=== PATIENT | female | born 1965 | race Caucasian/White ===

== ENCOUNTER → 2016-11-03 | Outpatient (CLI) | payer BC ==
[2016-11-03 10:13] LABS: ALBUMIN 3.5 GM/DL (3.2-5.2); ALBUMIN/GLOBULIN RATIO 0.85 (1.00-1.93); ALKALINE PHOSPHATASE 78 U/L (45-117); ALT/SGPT 25 U/L (12-78); ANION GAP 7 MEQ/L (8-16); AST/SGOT 31 U/L (15-37); BILIRUBIN,TOTAL 0.5 MG/DL (0.2-1.0); BLOOD UREA NITROGEN 12 MG/DL (7-18); CALCIUM LEVEL 8.7 MG/DL (8.5-10.1); CARBON DIOXIDE LEVEL 26 MEQ/L (21-32); CHLORIDE LEVEL 107 MEQ/L (98-107); CHOLESTEROL LEVEL 175 MG/DL (<200); CREATININE FOR GFR 0.62 MG/DL (0.55-1.02); GLOMERULAR FILTRATION RATE > 60.0 (>58); GLUCOSE, FASTING 91 MG/DL (70-105); SODIUM LEVEL 140 MEQ/L (136-145); TOTAL PROTEIN 7.6 GM/DL (6.4-8.2); TRIGLYCERIDES LEVEL 115 MG/DL (<150)
[2016-11-03 10:15] LABS: POTASSIUM SERUM 5.2 MEQ/L (3.5-5.1)
== END ==
LOC: M LAB 08:57
PROVIDERS: ATTEND Family Medicine
DX: R73.03 Prediabetes (principal)

== ENCOUNTER → 2016-11-05 | Outpatient (CLI) | payer BC ==
--- NOTE | 2016-11-05 13:43 | REPMRS ---
Patient History The patient states she has not had a clinical breast exam in over a year. No known family history of cancer. Digital Mammo Screening Bilat: November 05, 2016 - Exam #: [id number] Bilateral CC and MLO view(s) were taken. Technologist: Sheyla Awad Technologist Prior study comparison: August 13, 2014, bilateral digital mammo screening bilat performed at [facility]. July 03, 2008, digital bilateral screening mammo performed at [facility]. FINDINGS: There are scattered fibroglandular densities. There has been no change in the appearance of the mammogram from the prior studies. There is a mild amount of scattered fibroglandular density which is fairly symmetric. There is no interval development of dominant mass, architectural distortion, or clustered microcalcification suggestive of malignancy. ASSESSMENT: BI-RADS/ACR category 1 mammogram. Negative. Recommendation Routine screening mammogram in 1 year (for women over age 40). This mammogram was interpreted with the aid of an FDA-approved computer-aided dectection system. Electronically Signed By: Wally Quinn MD 11/05/16 [id number]
== END ==
LOC: M RAD 12:52
PROVIDERS: ATTEND Family Medicine
DX: Z12.31 Encounter for screening mammogram for malignant neoplasm of breast (principal)

== ENCOUNTER → 2017-06-24 | Outpatient (CLI) | payer BC ==
[2017-06-24 13:13] LABS: ESTIMATED AVERAGE GLUCOSE 105 MG/DL (60-110); HEMOGLOBIN A1c 5.3 %
== END ==
LOC: M WUC 09:50
DX: R73.03 Prediabetes (principal)
CPT/HCPCS: 83036

== ENCOUNTER → 2018-04-22 | Outpatient (CLI) | payer BC ==
[2018-04-22 17:04] LABS: ALBUMIN 3.9 GM/DL (3.2-5.2); ALT/SGPT 20 U/L (12-78); BILIRUBIN,TOTAL 0.3 MG/DL (0.2-1.0); BLOOD UREA NITROGEN 13 MG/DL (7-18); CALCIUM LEVEL 8.9 MG/DL (8.5-10.1); CARBON DIOXIDE LEVEL 30 MEQ/L (21-32); CHLORIDE LEVEL 103 MEQ/L (98-107); CHOLESTEROL LEVEL 149 MG/DL (<200); CHOLESTEROL RISK RATIO 3.386 (<5); CREATININE FOR GFR 0.72 MG/DL (0.55-1.30); FREE T4 1.21 NG/DL (0.76-1.46); GLOMERULAR FILTRATION RATE > 60.0 (>51); GLUCOSE, FASTING 97 MG/DL (70-100); HDL CHOLESTEROL 44 MG/DL (>40); LDL CHOLESTEROL 86 MG/DL (<100); NON-HDL-C 105 MG/DL; POTASSIUM SERUM 4.8 MEQ/L (3.5-5.1); SODIUM LEVEL 140 MEQ/L (136-145); TOTAL PROTEIN 7.5 GM/DL (6.4-8.2); TRIGLYCERIDES LEVEL 94 MG/DL (<150)
[2018-04-22 17:10] LABS: HEMOGLOBIN A1c 5.9 %
== END ==
LOC: M WUC 12:03
PROVIDERS: ATTEND Family Medicine
DX: R73.03 Prediabetes (principal); E66.09 Other obesity due to excess calories

== ENCOUNTER → 2018-10-17 | Outpatient (CLI) | payer BC ==
[2018-10-17 12:51] LABS: BASO % 0.3 % (0.0-1.0); EOS # 0.1 10^3/uL (0.0-0.50); EOS % 1.5 % (0.0-3.0); HEMOGLOBIN 15.9 g/dl (12.0-15.5); LYMPH # 2.8 10^3/uL (1.5-4.5); LYMPH % 30.1 % (24.0-44.0); MEAN CORPUSCULAR HEMOGLOBIN 30.9 pg (27.0-33.0); MEAN CORPUSCULAR HGB CONC 33.1 g/dl (32.0-36.5); MEAN CORPUSCULAR VOLUME 93.2 fl (80.0-96.0); MONO # 0.6 10^3/uL (0.0-0.8); MONO % 6.6 % (0.0-5.0); NEUTROPHILS # 5.6 10^3/uL (1.8-7.7); NEUTROPHILS % 61.2 % (36.0-66.0); PLATELET COUNT, AUTOMATED 207 10^3/uL (150-450); RED BLOOD COUNT 5.15 10^6/uL (4.00-5.40); WHITE BLOOD COUNT 9.2 10^3/uL (4.0-10.0)
[2018-10-17 13:10] LABS: ERYTHROCYTE SEDIMENTATION RATE 6 mm/hr (0-30)
[2018-10-19 14:07] LABS: ANTINUCLEAR ANTIBODIES DIRECT Negative (Negative)
== END ==
LOC: M WUC 08:52
PROVIDERS: ATTEND Otolaryngology
DX: R22.1 Localized swelling, mass and lump, neck (principal)

== ENCOUNTER → 2018-10-17 | Outpatient (CLI) | payer BC ==
[2018-10-17 12:49] LABS: BASO % 0.4 % (0.0-1.0); EOS # 0.1 10^3/uL (0.0-0.50); EOS % 1.4 % (0.0-3.0); HEMATOCRIT 48.4 % (36.0-47.0); LYMPH # 2.7 10^3/uL (1.5-4.5); LYMPH % 29.5 % (24.0-44.0); MEAN CORPUSCULAR HEMOGLOBIN 30.9 pg (27.0-33.0); MEAN CORPUSCULAR HGB CONC 33.1 g/dl (32.0-36.5); MEAN CORPUSCULAR VOLUME 93.6 fl (80.0-96.0); MONO # 0.5 10^3/uL (0.0-0.8); NEUTROPHILS # 5.6 10^3/uL (1.8-7.7); NEUTROPHILS % 62.4 % (36.0-66.0); PLATELET COUNT, AUTOMATED 180 10^3/uL (150-450); RED BLOOD COUNT 5.17 10^6/uL (4.00-5.40)
[2018-10-17 13:06] LABS: ALBUMIN 3.7 GM/DL (3.2-5.2); ALT/SGPT 20 U/L (12-78); BILIRUBIN,TOTAL 0.3 MG/DL (0.2-1.0); BLOOD UREA NITROGEN 12 MG/DL (7-18); CALCIUM LEVEL 9.4 MG/DL (8.5-10.1); CARBON DIOXIDE LEVEL 33 MEQ/L (21-32); CHLORIDE LEVEL 106 MEQ/L (98-107); CHOLESTEROL LEVEL 155 MG/DL (<200); CHOLESTEROL RISK RATIO 3.444 (<5); CREATININE FOR GFR 0.67 MG/DL (0.55-1.30); GLOMERULAR FILTRATION RATE > 60.0 (>51); GLUCOSE, FASTING 111 MG/DL (70-100); HDL CHOLESTEROL 45 MG/DL (>40); LDL CHOLESTEROL 90 MG/DL (<100); NON-HDL-C 110 MG/DL; POTASSIUM SERUM 4.2 MEQ/L (3.5-5.1); SODIUM LEVEL 142 MEQ/L (136-145); TOTAL 25(OH) VITAMIN D 18.8 NG/ML (30.0-100.0); TOTAL PROTEIN 7.3 GM/DL (6.4-8.2); TRIGLYCERIDES LEVEL 99 MG/DL (<150)
[2018-10-19 00:06] LABS: Lyme Disease IgG/IgM Antibodie <0.91 ISR (0.00-0.90); Lyme Disease IgM Ab Quantitati <0.80 index (0.00-0.79)
== END ==
LOC: M WUC 08:48
PROVIDERS: ATTEND Family Medicine
DX: R73.03 Prediabetes (principal); J45.20 Mild intermittent asthma, uncomplicated; R53.83 Other fatigue; Z13.220 Encounter for screening for lipoid disorders

== ENCOUNTER → 2019-05-09 | Outpatient (CLI) | payer BC ==
--- NOTE | 2019-05-09 09:07 | REP ---
PA and lateral chest: Comparison is 03/30/2013. Lung zarate are clear. Cardiac size is normal. The central uri are prominent, unchanged. This may represent pulmonary hypertension. The mediastinum and skeletal structures are unremarkable. Impression: There are no new or acute cardiopulmonary findings. There is mild prominence of the central uri bilaterally, unchanged, possibly representing pulmonary hypertension. Electronically Signed by Rick Sloan MD 05/09/2019 08:58 A
[2019-05-09 09:53] LABS: ALBUMIN 3.9 GM/DL (3.2-5.2); ALT/SGPT 24 U/L (12-78); BILIRUBIN,TOTAL 0.4 MG/DL (0.2-1.0); BLOOD UREA NITROGEN 14 MG/DL (7-18); CALCIUM LEVEL 9.2 MG/DL (8.5-10.1); CARBON DIOXIDE LEVEL 31 MEQ/L (21-32); CHLORIDE LEVEL 106 MEQ/L (98-107); CREATININE FOR GFR 0.72 MG/DL (0.55-1.30); GLOMERULAR FILTRATION RATE > 60.0 (>51); GLUCOSE, FASTING 125 MG/DL (70-100); POTASSIUM SERUM 4.6 MEQ/L (3.5-5.1); SODIUM LEVEL 140 MEQ/L (136-145); TOTAL PROTEIN 7.5 GM/DL (6.4-8.2)
[2019-05-09 17:39] LABS: HEMOGLOBIN A1c 5.7 %
== END ==
LOC: M WUC 08:07
PROVIDERS: ATTEND Physician Assistant
DX: J45.30 Mild persistent asthma, uncomplicated (principal); R73.03 Prediabetes; E55.9 Vitamin D deficiency, unspecified

== ENCOUNTER → 2020-06-18 | Outpatient (CLI) | payer BC ==
[~2020-06-18] MED LIST: GASTROGRAFIN SOLUTION 30ML (Q9963) As Ordered ONE; ISOVUE-370 76% 100ML VIAL As Ordered ONE
--- NOTE | 2020-06-18 14:20 | REP ---
INDICATION: RIGHT LOWER QUAD PAIN. COMPARISON: 07/15/2009 TECHNIQUE: Axial contrast-enhanced images from the lung bases to the pubic symphysis using oral and 100 cc Isovue 370 intravenous contrast material. Coronal and sagittal reformations obtained. This CT examination was performed using the following dose reduction techniques: Automated exposure control, adjustment of mA and/or kv according to the patient's size, and the use of iterative reconstruction technique. FINDINGS: Liver demonstrates fatty infiltration without focal hepatic lesion. Spleen, pancreas, gallbladder, bilateral adrenal glands are normal. 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 Nephrolithiasis suggested. The enteric system including stomach, small, and large bowel appears normal. No evidence for obstruction or acute inflammatory process. Normal terminal ileum and appendix are identified in the right lower quadrant. Few scattered sigmoid diverticula noted without acute diverticulitis. Pelvis demonstrates normal bladder and evidence for prior hysterectomy.. No ascites. No free air. No intraperitoneal or retroperitoneal adenopathy. Abdominal aorta and vasculature appear normal. Musculoskeletal structures are intact and without acute osseous abnormality. IMPRESSION: No acute abdominopelvic pathology appreciated. Horseshoe kidney and possible nephrolithiasis. No hydronephrosis. <Electronically signed by Yoel Koch > 06/18/20 [id number]
== END ==
LOC: M RAD 12:22
PROVIDERS: ATTEND Physician Assistant
DX: R10.31 Right lower quadrant pain (principal)
CPT/HCPCS: 74177; Q9963; Q9967

== ENCOUNTER → 2020-09-13 | Outpatient (CLI) | payer BC ==
--- NOTE | 2020-09-13 13:48 | REPMRS ---
Patient History The patient states she has not had a clinical breast exam in over a year. No known family history of cancer. No Hormone Replacement Therapy Patient states no breast complaints today. Patient has signed MRS History Sheet. Digital Woman Screen Mammo: September 13, 2020 - Exam #: [id number] Bilateral CC and MLO view(s) were taken. Technologist: Ruby Ho, Technologist Prior study comparison: November 05, 2016, bilateral digital mammo screening bilat, performed at [facility]. August 13, 2014, bilateral digital mammo screening bilat, performed at [facility]. FINDINGS: There are scattered fibroglandular densities. Screening. Digital screening (2D) mammography was performed bilaterally in the CC and MLO projections. Additionally, breast tomosynthesis (3D mammography) was performed bilaterally in the CC and MLO projections. Todays exam was compared to the prior exam/exams. By history, the patient has no complaints of a palpable breast abnormality or other significant breast complaints. The breasts are unchanged in size and shape. There are no ying-soft tissue densities or spiculated masses. There is no internal architectural distortion. There are no suspicious ying-calcific clusters. Skin thickening or nipple retraction is not present. IMPRESSION: BI-RADS Category 2- Benign Findings. There is no evidence of malignant alteration of the breasts. Followup examination recommended in one year. The Volpara volumetric breast density category is B, there are scattered areas of fibroglandular densities. This mammogram was read with the assistance of [employer],an FDA approved computer aided detection system for mammography. The lifetime Tyrer-Cuzick score is 10.3 % Negative x-ray reports should not delay surgical consultation if a dominant or clinically suspicious mass is present. Not all breast cancers can be identified by mammography. Therefore, we recommend that you continue to perform regular breast self-examination and physical examination and then promptly contact your physician of any concerns or changes. Adenosis and dense breasts may obscure an underlying neoplasm. Assessment: BI-RADS/ACR category 2 mammogram. Benign Findings. Recommendation Routine screening mammogram of both breasts in 1 year. Electronically Signed By: Jignesh Oviedo DO 09/13/20 1703
== END ==
LOC: M WHC 11:28
PROVIDERS: ATTEND Physician Assistant
DX: Z12.31 Encounter for screening mammogram for malignant neoplasm of breast (principal)

== ENCOUNTER → 2021-03-31 | Outpatient (CLI) | payer BC, MEDICARE, OTHER | LOC: M RAD 13:54 | PROVIDERS: ATTEND Family Medicine | DX: K57.30 Diverticulosis of large intestine without perforation or abscess without bleeding (principal); R10.30 Lower abdominal pain, unspecified; Q63.1 Lobulated, fused and horseshoe kidney | CPT/HCPCS: 74177; Q9963; Q9967 ==

== ENCOUNTER → 2021-05-20 | Outpatient (CLI) | payer MEDICARE ==
[2021-05-20 10:03] LABS: BASO # 0.1 10^3/uL (0.0-0.2); BASO % 0.8 % (0.0-1.0); EOS # 0.1 10^3/uL (0.0-0.5); EOS % 1.7 % (0.0-3.0); HEMATOCRIT 48.3 % (36.0-47.0); HEMOGLOBIN 16.1 g/dl (12.0-15.5); LYMPH # 2.4 10^3/uL (1.5-5.0); MEAN CORPUSCULAR HEMOGLOBIN 30.4 pg (27.0-33.0); MEAN CORPUSCULAR HGB CONC 33.3 g/dl (32.0-36.5); MEAN CORPUSCULAR VOLUME 91.1 fl (80.0-96.0); MONO # 0.6 10^3/uL (0.0-0.8); MONO % 7.6 % (2.0-8.0); NEUTROPHILS # 4.3 10^3/uL (1.5-8.5); NEUTROPHILS % 57.6 % (36.0-66.0); PLATELET COUNT, AUTOMATED 200 10^3/uL (150-450); WHITE BLOOD COUNT 7.5 10^3/uL (4.0-10.0)
[2021-05-20 10:35] LABS: LIPASE 96 U/L (73-393)
[2021-05-20 10:38] LABS: BLOOD UREA NITROGEN 13 MG/DL (7-18); CALCIUM LEVEL 9.6 MG/DL (8.5-10.1); CARBON DIOXIDE LEVEL 33 MEQ/L (21-32); CHLORIDE LEVEL 106 MEQ/L (98-107); CREATININE FOR GFR 0.66 MG/DL (0.55-1.30); GLOMERULAR FILTRATION RATE > 60.0 (>51); GLUCOSE, FASTING 114 MG/DL (70-100); POTASSIUM SERUM 4.2 MEQ/L (3.5-5.1); SODIUM LEVEL 141 MEQ/L (136-145)
[2021-05-20 10:39] LABS: ALBUMIN 3.7 GM/DL (3.2-5.2); ALT/SGPT 28 U/L (12-78); AMYLASE 40 U/L (25-115); BILIRUBIN,TOTAL 0.3 MG/DL (0.2-1.0); CHOLESTEROL LEVEL 157 MG/DL (<200); CHOLESTEROL RISK RATIO 3.738 (<5); HDL CHOLESTEROL 42 MG/DL (>40); LDL CHOLESTEROL 100 MG/DL (<100); NON-HDL-C 115 MG/DL; TOTAL PROTEIN 7.2 GM/DL (6.4-8.2); TRIGLYCERIDES LEVEL 76 MG/DL (<150)
[2021-05-20 10:49] LABS: HEMOGLOBIN A1c 5.8 %
== END ==
LOC: M WUC 08:30
PROVIDERS: ATTEND Family Medicine
DX: Z00.00 Encounter for general adult medical examination without abnormal findings (principal); R73.03 Prediabetes; Z13.29 Encounter for screening for other suspected endocrine disorder; Z13.220 Encounter for screening for lipoid disorders; Z13.0 Encounter for screening for diseases of the blood and blood-forming organs and certain disorders involving the immune mechanism; K57.30 Diverticulosis of large intestine without perforation or abscess without bleeding

== ENCOUNTER → 2021-09-25 | Outpatient (CLI) | payer MEDICARE | LOC: M WUC 10:25 | PROVIDERS: ATTEND Nurse Practitioner Adult Health | DX: M54.2 Cervicalgia (principal); M25.511 Pain in right shoulder ==

== ENCOUNTER → 2021-09-29 | Outpatient (CLI) | payer OTHER | LOC: M RAD 07:27 | PROVIDERS: ATTEND Nurse Practitioner Adult Health | DX: R09.89 Other specified symptoms and signs involving the circulatory and respiratory systems (principal) ==

== ENCOUNTER → 2022-01-05 | Outpatient (CLI) | payer OTHER ==
[2022-01-05 12:49] LABS: BASO % 0.2 % (0.0-1.0); EOS % 0.1 % (0.0-3.0); HEMATOCRIT 43.5 % (36.0-47.0); HEMOGLOBIN 14.7 g/dl (12.0-15.5); LYMPH # 1.2 10^3/uL (1.5-5.0); MEAN CORPUSCULAR HEMOGLOBIN 30.4 pg (27.0-33.0); MEAN CORPUSCULAR HGB CONC 33.8 g/dl (32.0-36.5); MEAN CORPUSCULAR VOLUME 90.1 fl (80.0-96.0); MONO # 0.4 10^3/uL (0.0-0.8); MONO % 2.9 % (2.0-8.0); NEUTROPHILS # 12.1 10^3/uL (1.5-8.5); NEUTROPHILS % 87.3 % (36.0-66.0); PLATELET COUNT, AUTOMATED 286 10^3/uL (150-450); RED BLOOD COUNT 4.83 10^6/uL (4.00-5.40); WHITE BLOOD COUNT 13.8 10^3/uL (4.0-10.0)
[2022-01-05 14:04] LABS: ALBUMIN 3.2 GM/DL (3.2-5.2); ALT/SGPT 39 U/L (12-78); BILIRUBIN,TOTAL 0.7 MG/DL (0.2-1.0); BLOOD UREA NITROGEN 16 MG/DL (7-18); CALCIUM LEVEL 9.4 MG/DL (8.5-10.1); CARBON DIOXIDE LEVEL 31 MEQ/L (21-32); CHLORIDE LEVEL 100 MEQ/L (98-107); GLOMERULAR FILTRATION RATE > 60.0 (>51); GLUCOSE, FASTING 172 MG/DL (70-100); POTASSIUM SERUM 3.3 MEQ/L (3.5-5.1); SODIUM LEVEL 139 MEQ/L (136-145); TOTAL PROTEIN 6.9 GM/DL (6.4-8.2)
== END ==
LOC: M WUC 10:09
PROVIDERS: ATTEND Nurse Practitioner Adult Health
DX: J44.1 Chronic obstructive pulmonary disease with (acute) exacerbation (principal); R91.8 Other nonspecific abnormal finding of lung field

== ENCOUNTER → 2022-01-12 | Outpatient (CLI) | payer OTHER ==
[2022-01-12 17:56] LABS: BASO # 0.1 10^3/uL (0.0-0.2); BASO % 0.3 % (0.0-1.0); EOS % 0.1 % (0.0-3.0); HEMATOCRIT 46.2 % (36.0-47.0); HEMOGLOBIN 14.7 g/dl (12.0-15.5); LYMPH # 1.5 10^3/uL (1.5-5.0); MEAN CORPUSCULAR HEMOGLOBIN 30.3 pg (27.0-33.0); MEAN CORPUSCULAR HGB CONC 31.8 g/dl (32.0-36.5); MEAN CORPUSCULAR VOLUME 95.3 fl (80.0-96.0); MONO # 0.4 10^3/uL (0.0-0.8); MONO % 2.7 % (2.0-8.0); NEUTROPHILS # 13.3 10^3/uL (1.5-8.5); NEUTROPHILS % 86.4 % (36.0-66.0); PLATELET COUNT, AUTOMATED 273 10^3/uL (150-450); RED BLOOD COUNT 4.85 10^6/uL (4.00-5.40); WHITE BLOOD COUNT 15.4 10^3/uL (4.0-10.0)
[2022-01-12 18:54] LABS: ALBUMIN 3.3 GM/DL (3.2-5.2); ALT/SGPT 24 U/L (12-78); BILIRUBIN,TOTAL 0.3 MG/DL (0.2-1.0); BLOOD UREA NITROGEN 13 MG/DL (7-18); C REACTIVE PROTEIN QUANTITATIV 1.49 MG/DL (0.00-0.30); CALCIUM LEVEL 9.5 MG/DL (8.5-10.1); CARBON DIOXIDE LEVEL 28 MEQ/L (21-32); CHLORIDE LEVEL 102 MEQ/L (98-107); CREATININE FOR GFR 0.87 MG/DL (0.55-1.30); FREE T4 1.21 NG/DL (0.76-1.46); GLOMERULAR FILTRATION RATE > 60.0 (>51); GLUCOSE, FASTING 198 MG/DL (70-100); POTASSIUM SERUM 3.8 MEQ/L (3.5-5.1); SODIUM LEVEL 136 MEQ/L (136-145); THYROID STIMULATING HORMONE 0.631 uIU/ML (0.358-3.740)
[2022-01-12 19:31] LABS: ERYTHROCYTE SEDIMENTATION RATE 12 mm/hr (0-30)
== END ==
LOC: M WUC 11:19
PROVIDERS: ATTEND Nurse Practitioner Adult Health
DX: J44.1 Chronic obstructive pulmonary disease with (acute) exacerbation (principal)

== ENCOUNTER → 2022-02-02 | Outpatient (CLI) | payer MEDICARE, OTHER ==
[~2022-02-02] MED LIST changes: -GASTROGRAFIN SOLUTION 30ML (Q9963) As Ordered ONE
== END ==
LOC: M RAD 08:32
PROVIDERS: ATTEND Nurse Practitioner Adult Health
DX: R59.0 Localized enlarged lymph nodes (principal); M50.322 Other cervical disc degeneration at C5-C6 level; M50.323 Other cervical disc degeneration at C6-C7 level

== ENCOUNTER 2022-02-23 08:46 | Emergency (ER) | payer MEDICARE, OTHER ==
[~2022-02-23] VITALS: Ht 152.4 cm; Wt 79.5 kg
[2022-02-23] MEDS ORDERED: OMEP40CA4 PO (09:01)
[2022-02-23] MEDS ORDERED: SING10TA32 PO (09:01)
[2022-02-23] MEDS ORDERED: TIZA4CAP PO (09:01)
[2022-02-23] MEDS ORDERED: ONDANSETRON 4MG 2ML VIAL IV ONE (09:15)
[2022-02-23] MEDS ORDERED: CYCLOBENZAPRINE 10MG TABLET PO ONE (09:15)
[2022-02-23] MEDS ORDERED: IPRATROPIUM 0.5MG/ALBUTEROL 2.5MG INH SOL UD 3ML (DUONEB) NEB ONE (09:15)
[2022-02-23] MEDS: MORPHINE 4 MG/ML 1ML VIAL IV PRN ×2 (09:32→12:23)
[2022-02-23] MEDS ORDERED: EXCEDRIN MIGRAINE TABLET PO ONE (11:55)
[2022-02-23 12:21] VITALS: BP 133/95
[2022-02-23] MEDS ORDERED: PERC5TAB12 PO (12:58)
== END 2022-02-23 13:26 | disposition home or self-care (01) ==
LOC: M ED 08:46 → EDBD 08:46 → M ED 13:26
DX: M54.6 Pain in thoracic spine (principal); M54.50 Low back pain, unspecified; W00.1XXA Fall from stairs and steps due to ice and snow, initial encounter; Y92.099 Unspecified place in other non-institutional residence as the place of occurrence of the external cause; R73.03 Prediabetes; J44.9 Chronic obstructive pulmonary disease, unspecified; J45.909 Unspecified asthma, uncomplicated; K21.9 Gastro-esophageal reflux disease without esophagitis; F17.200 Nicotine dependence, unspecified, uncomplicated; F12.10 Cannabis abuse, uncomplicated; Z88.6 Allergy status to analgesic agent; Z88.5 Allergy status to narcotic agent
CPT/HCPCS: 71101; 94640; 96374; 96375; 96376; 99284; J2270; J2405

== ENCOUNTER → 2022-03-09 | Outpatient (CLI) | payer MEDICARE, OTHER ==
[~2022-03-09] MED LIST changes: +E-Z-GAS II EFFERVESCENT PACKET (SODIUM BICARB./CITRIC ACID/SIMETHICONE) As Ordered ONE; +E-Z-HD 98% w/w 340GM SUSP BTL As Ordered ONE; +E-Z-PAQUE 96% w/w SUSP 176GM BTL As Ordered ONE; -ISOVUE-370 76% 100ML VIAL As Ordered ONE; +OMEP40CA4 PO; +PERC5TAB12 PO; +SING10TA32 PO; +TIZA4CAP PO
== END ==
LOC: M RAD 08:52
PROVIDERS: ATTEND Surgery
DX: R13.10 Dysphagia, unspecified (principal)

== ENCOUNTER → 2022-04-12 | Outpatient (CLI) | payer OTHER ==
[~2022-04-12] MED LIST changes: +BUDE10.2; -E-Z-GAS II EFFERVESCENT PACKET (SODIUM BICARB./CITRIC ACID/SIMETHICONE) As Ordered ONE; -E-Z-HD 98% w/w 340GM SUSP BTL As Ordered ONE; -E-Z-PAQUE 96% w/w SUSP 176GM BTL As Ordered ONE; +FLUT11IN; +VITA100093 PO
== END ==
LOC: M LABSMTC 11:18
PROVIDERS: ATTEND Anesthesiology
DX: Z01.812 Encounter for preprocedural laboratory examination (principal); Z11.52 Encounter for screening for COVID-19

== ENCOUNTER 2022-04-16 09:40 | Day surgery (SDC) | payer OTHER ==
[~2022-04-16] VITALS: Ht 152.4 cm; Wt 78.7 kg
[~2022-04-16 09:40] MED LIST changes: +NS 1,000 ML IV ONE
[2022-04-16] MEDS ORDERED: SUCR1TA PO (10:00)
[2022-04-16] MEDS ORDERED: ONDANSETRON 4MG 2ML VIAL As Ordered ONE (10:56)
[2022-04-16] MEDS ORDERED: propofoL 200 MG/20 ML VIAL As Ordered ONE ×2 (10:56→11:06)
[2022-04-16] MEDS ORDERED: LIDOCAINE 2% 100MG/5ML SDV (FOR ANES.) As Ordered ONE (10:56)
[2022-04-16 11:32] VITALS: BP 150/64
== END 2022-04-16 11:33 | disposition home or self-care (01) ==
LOC: M OPP 09:40
PROVIDERS: ATTEND Surgery
DX: K52.9 Noninfective gastroenteritis and colitis, unspecified (principal); Q43.8 Other specified congenital malformations of intestine; K31.89 Other diseases of stomach and duodenum; J45.909 Unspecified asthma, uncomplicated; Z79.51 Long term (current) use of inhaled steroids; Z79.899 Other long term (current) drug therapy; Z88.5 Allergy status to narcotic agent; Z88.8 Allergy status to other drugs, medicaments and biological substances
CPT/HCPCS: 43239; 45378; 88305; J2405

== ENCOUNTER → 2022-05-29 | Outpatient (CLI) | payer OTHER ==
[~2022-05-29] MED LIST changes: +LIQUID POLIBAR PLUS 105% w/v 750ML BTL As Ordered ONE; +MONT-5 PO; -NS 1,000 ML IV ONE; -SING10TA32 PO; +SUCR1TA PO
== END ==
LOC: M RAD 09:42
PROVIDERS: ATTEND Physician Assistant
DX: R19.7 Diarrhea, unspecified (principal); R10.84 Generalized abdominal pain

== ENCOUNTER → 2022-07-16 | Outpatient (CLI) | payer OTHER ==
[~2022-07-16] MED LIST changes: -LIQUID POLIBAR PLUS 105% w/v 750ML BTL As Ordered ONE
[2022-07-16 13:09] LABS: BASO % 0.3 % (0.0-1.0); EOS # 0.1 10^3/uL (0.0-0.5); EOS % 1.1 % (0.0-3.0); HEMATOCRIT 47.3 % (36.0-47.0); HEMOGLOBIN 16.1 g/dl (12.0-15.5); LYMPH # 2.5 10^3/uL (1.5-5.0); LYMPH % 26.2 % (24.0-44.0); MEAN CORPUSCULAR HEMOGLOBIN 31.4 pg (27.0-33.0); MEAN CORPUSCULAR VOLUME 92.4 fl (80.0-96.0); MONO # 0.6 10^3/uL (0.0-0.8); MONO % 6.6 % (2.0-8.0); NEUTROPHILS # 6.3 10^3/uL (1.5-8.5); NEUTROPHILS % 65.5 % (36.0-66.0); PLATELET COUNT, AUTOMATED 222 10^3/uL (150-450); RED BLOOD COUNT 5.12 10^6/uL (4.00-5.40); WHITE BLOOD COUNT 9.6 10^3/uL (4.0-10.0)
[2022-07-16 13:29] LABS: HEMOGLOBIN A1c 5.4 % (4.0-6.0)
[2022-07-16 13:42] LABS: ALBUMIN 3.8 G/DL (3.2-5.2); ALKALINE PHOSPHATASE 90 U/L (46-116); ALT/SGPT 16 U/L (7.0-40); AST/SGOT 19 U/L (<34); BILIRUBIN,TOTAL 0.5 MG/DL (0.3-1.2); BLOOD UREA NITROGEN 14 MG/DL (9-23); CALCIUM LEVEL 9.9 MG/DL (8.5-10.1); CARBON DIOXIDE LEVEL 31 MMOL/L (20-31); CHLORIDE LEVEL 105 MMOL/L (98-107); CHOLESTEROL LEVEL 161 MG/DL (<200); CHOLESTEROL RISK RATIO 3.83 (<5); CREATININE FOR GFR 0.65 MG/DL (0.55-1.30); FREE T4 1.68 NG/DL (0.89-1.76); GLOMERULAR FILTRATION RATE > 60.0 (>51); GLUCOSE, FASTING 104 MG/DL (60-100); LDL CHOLESTEROL 100.4 MG/DL (<100); POTASSIUM SERUM 4.2 MMOL/L (3.5-5.1); SODIUM LEVEL 140 MMOL/L (136-145); THYROID STIMULATING HORMONE 1.384 uIU/ML (0.55-4.78); TOTAL PROTEIN 7.3 G/DL (5.7-8.2); TRIGLYCERIDES LEVEL 93 MG/DL (<150)
[2022-07-16 13:43] LABS: TOTAL 25(OH) VITAMIN D 96.6 NG/ML (20.0-100.0)
== END ==
LOC: M WUC 09:25
PROVIDERS: ATTEND Nurse Practitioner Adult Health
DX: R73.03 Prediabetes (principal); E55.9 Vitamin D deficiency, unspecified

== ENCOUNTER 2022-08-17 18:07 | Emergency (ER) | payer OTHER ==
[~2022-08-17] VITALS: Ht 154.9 cm; Wt 78.6 kg
[~2022-08-17 18:07] MED LIST changes: -FLUT11IN; +FLUT12AE6
[2022-08-17 18:08] VITALS: BP 151/64; TEMP 97.9; O2SAT 99
[2022-08-17 19:25] LABS: BASO % 0.3 % (0.0-1.0); EOS % 0.3 % (0.0-3.0); HEMATOCRIT 45.7 % (36.0-47.0); HEMOGLOBIN 15.7 g/dl (12.0-15.5); LYMPH # 3.6 10^3/uL (1.5-5.0); LYMPH % 30.5 % (24.0-44.0); MEAN CORPUSCULAR HEMOGLOBIN 31.7 pg (27.0-33.0); MEAN CORPUSCULAR HGB CONC 34.4 g/dl (32.0-36.5); MEAN CORPUSCULAR VOLUME 92.1 fl (80.0-96.0); MONO # 0.6 10^3/uL (0.0-0.8); MONO % 5.1 % (2.0-8.0); NEUTROPHILS # 7.5 10^3/uL (1.5-8.5); NEUTROPHILS % 63.5 % (36.0-66.0); PLATELET COUNT, AUTOMATED 224 10^3/uL (150-450); RED BLOOD COUNT 4.96 10^6/uL (4.00-5.40); WHITE BLOOD COUNT 11.9 10^3/uL (4.0-10.0)
[2022-08-17 19:46] LABS: LIPASE 24 U/L (12-53)
[2022-08-17 19:48] LABS: ALBUMIN 4.1 G/DL (3.2-5.2); ALKALINE PHOSPHATASE 95 U/L (46-116); ALT/SGPT 16 U/L (7.0-40); AST/SGOT 14 U/L (<34); BILIRUBIN,DIRECT < 0.1 MG/DL (<0.4); BILIRUBIN,TOTAL 0.3 MG/DL (0.3-1.2); TOTAL PROTEIN 7.4 G/DL (5.7-8.2)
== END 2022-08-17 23:17 | disposition left against medical advice (07) ==
LOC: M ED 18:07
DX: R10.9 Unspecified abdominal pain (principal); Z53.21 Procedure and treatment not carried out due to patient leaving prior to being seen by health care provider

== ENCOUNTER → 2022-09-30 | Outpatient (CLI) | payer OTHER | LOC: M CARPUL 08:41 | PROVIDERS: ATTEND Internal Medicine Critical Care Medicine | DX: R06.00 Dyspnea, unspecified (principal); I34.0 Nonrheumatic mitral (valve) insufficiency ==

== ENCOUNTER → 2022-10-23 | Outpatient (CLI) | payer OTHER ==
[~2022-10-23] MED LIST changes: +ISOVUE-370 76% 100ML VIAL As Ordered ONE
== END ==
LOC: M RAD 09:12
PROVIDERS: ATTEND Family Medicine
DX: D48.0 Neoplasm of uncertain behavior of bone and articular cartilage (principal); M47.814 Spondylosis without myelopathy or radiculopathy, thoracic region
CPT/HCPCS: 72129; Q9967

== ENCOUNTER → 2022-11-06 | Outpatient (CLI) | payer OTHER ==
[~2022-11-06] MED LIST changes: -ISOVUE-370 76% 100ML VIAL As Ordered ONE
== END ==
LOC: M RAD 09:33
PROVIDERS: ATTEND Family Medicine
DX: D48.0 Neoplasm of uncertain behavior of bone and articular cartilage (principal)
CPT/HCPCS: 78315; A9503

== ENCOUNTER → 2023-01-05 | Outpatient (CLI) | payer OTHER | LOC: M RAD 14:01 | PROVIDERS: ATTEND Family Medicine | DX: M47.892 Other spondylosis, cervical region (principal) ==

== ENCOUNTER → 2023-08-03 | Outpatient (CLI) | payer OTHER ==
[2023-08-03 12:50] LABS: BASO # 0.1 10^3/uL (0.0-0.2); BASO % 0.5 % (0.0-1.0); EOS # 0.1 10^3/uL (0.0-0.5); HEMATOCRIT 46.4 % (36.0-47.0); HEMOGLOBIN 15.5 g/dl (12.0-15.5); LYMPH # 3.1 10^3/uL (1.5-5.0); LYMPH % 30.1 % (24.0-44.0); MEAN CORPUSCULAR HEMOGLOBIN 31.1 pg (27.0-33.0); MEAN CORPUSCULAR HGB CONC 33.4 g/dl (32.0-36.5); MEAN CORPUSCULAR VOLUME 93.2 fl (80.0-96.0); MONO # 0.7 10^3/uL (0.0-0.8); MONO % 6.6 % (2.0-8.0); NEUTROPHILS # 6.3 10^3/uL (1.5-8.5); NEUTROPHILS % 61.5 % (36.0-66.0); PLATELET COUNT, AUTOMATED 212 10^3/uL (150-450); RED BLOOD COUNT 4.98 10^6/uL (4.00-5.40); WHITE BLOOD COUNT 10.2 10^3/uL (4.0-10.0)
[2023-08-03 13:26] LABS: THYROID STIMULATING HORMONE 0.622 uIU/ML (0.55-4.78)
[2023-08-03 13:28] LABS: ALBUMIN 3.5 G/DL (3.2-5.2); ALKALINE PHOSPHATASE 91 U/L (46-116); ALT/SGPT 12 U/L (7.0-40); AST/SGOT 10 U/L (<34); BILIRUBIN,TOTAL 0.3 MG/DL (0.3-1.2); BLOOD UREA NITROGEN 13 MG/DL (9-23); CARBON DIOXIDE LEVEL 32 MMOL/L (20-31); CHLORIDE LEVEL 106 MMOL/L (98-107); CHOLESTEROL LEVEL 158 MG/DL (<200); CHOLESTEROL RISK RATIO 3.62 (<5); FREE T4 1.19 NG/DL (0.89-1.76); GLOMERULAR FILTRATION RATE > 60.0 (>51); GLUCOSE, FASTING 102 MG/DL (60-100); HDL CHOLESTEROL 43.6 MG/DL (>40); NON-HDL-C 114.4 MG/DL; POTASSIUM SERUM 5.1 MMOL/L (3.5-5.1); SODIUM LEVEL 142 MMOL/L (136-145); TOTAL PROTEIN 6.9 G/DL (5.7-8.2); TRIGLYCERIDES LEVEL 67 MG/DL (<150)
[2023-08-03 13:39] LABS: HEMOGLOBIN A1c 5.2 % (4.0-6.0)
== END ==
LOC: M WUC 09:16
PROVIDERS: ATTEND Nurse Practitioner Adult Health
DX: Z13.220 Encounter for screening for lipoid disorders (principal); Z13.29 Encounter for screening for other suspected endocrine disorder; Z13.0 Encounter for screening for diseases of the blood and blood-forming organs and certain disorders involving the immune mechanism

== ENCOUNTER → 2023-08-17 | Outpatient (CLI) | payer OTHER | LOC: M WHC 13:37 | PROVIDERS: ATTEND Nurse Practitioner Adult Health | DX: Z12.31 Encounter for screening mammogram for malignant neoplasm of breast (principal) ==

== ENCOUNTER → 2023-10-08 | Outpatient (CLI) | payer OTHER | LOC: M RAD 12:16 | PROVIDERS: ATTEND Internal Medicine Cardiovascular Disease | DX: R42 Dizziness and giddiness (principal) ==

== ENCOUNTER → 2023-10-28 | Outpatient (CLI) | payer OTHER | LOC: M PLAIMG 09:25 | PROVIDERS: ATTEND Nurse Practitioner Adult Health | DX: K59.00 Constipation, unspecified (principal) ==

== ENCOUNTER → 2024-02-01 | Outpatient (CLI) | payer OTHER ==
[2024-02-01 13:18] LABS: BASO # 0.1 10^3/uL (0.0-0.2); BASO % 0.5 % (0.0-1.0); EOS # 0.1 10^3/uL (0.0-0.5); EOS % 0.7 % (0.0-3.0); HEMATOCRIT 48.3 % (36.0-47.0); HEMOGLOBIN 16.1 g/dl (12.0-15.5); LYMPH # 2.7 10^3/uL (1.5-5.0); MEAN CORPUSCULAR HEMOGLOBIN 30.2 pg (27.0-33.0); MEAN CORPUSCULAR HGB CONC 33.3 g/dl (32.0-36.5); MEAN CORPUSCULAR VOLUME 90.6 fl (80.0-96.0); MONO # 0.7 10^3/uL (0.0-0.8); MONO % 6.5 % (2.0-8.0); NEUTROPHILS # 7.2 10^3/uL (1.5-8.5); NEUTROPHILS % 67.1 % (36.0-66.0); PLATELET COUNT, AUTOMATED 209 10^3/uL (150-450); RED BLOOD COUNT 5.33 10^6/uL (4.00-5.40); WHITE BLOOD COUNT 10.7 10^3/uL (4.0-10.0)
[2024-02-01 13:50] LABS: HEMOGLOBIN A1c 5.2 % (4.0-6.0)
[2024-02-01 13:52] LABS: ALBUMIN 3.5 G/DL (3.2-5.2); ALKALINE PHOSPHATASE 91 U/L (35-104); ALT/SGPT 13 U/L (7.0-40); AST/SGOT 9 U/L (<34); BILIRUBIN,TOTAL 0.3 MG/DL (0.3-1.2); BLOOD UREA NITROGEN 13 MG/DL (9-23); CARBON DIOXIDE LEVEL 31 MMOL/L (20-31); CHLORIDE LEVEL 104 MMOL/L (98-107); CHOLESTEROL LEVEL 191 MG/DL (<200); CHOLESTEROL RISK RATIO 4.78 (<5); CREATININE FOR GFR 0.65 MG/DL (0.55-1.30); FREE T4 1.19 NG/DL (0.89-1.76); GLOMERULAR FILTRATION RATE > 60.0 (>51); GLUCOSE, FASTING 103 MG/DL (60-100); HDL CHOLESTEROL 39.9 MG/DL (>40); LDL CHOLESTEROL 122.9 MG/DL (<100); NON-HDL-C 151.1 MG/DL; POTASSIUM SERUM 3.9 MMOL/L (3.5-5.1); SODIUM LEVEL 141 MMOL/L (136-145); TOTAL 25(OH) VITAMIN D 61.2 NG/ML (20.0-100.0); TOTAL PROTEIN 7.4 G/DL (5.7-8.2); TRIGLYCERIDES LEVEL 141 MG/DL (<150)
[2024-02-01 13:59] LABS: THYROID STIMULATING HORMONE 0.952 uIU/ML (0.55-4.78)
== END ==
LOC: M PLAIMG 10:10
PROVIDERS: ATTEND Nurse Practitioner Adult Health
DX: K59.00 Constipation, unspecified (principal); E03.9 Hypothyroidism, unspecified; R73.03 Prediabetes; E55.9 Vitamin D deficiency, unspecified

== ENCOUNTER → 2024-04-21 | Outpatient (CLI) | payer OTHER | LOC: M RAD 12:10 | PROVIDERS: ATTEND Internal Medicine Critical Care Medicine | DX: F17.218 Nicotine dependence, cigarettes, with other nicotine-induced disorders (principal); J84.10 Pulmonary fibrosis, unspecified; I25.10 Atherosclerotic heart disease of native coronary artery without angina pectoris; I25.84 Coronary atherosclerosis due to calcified coronary lesion ==